=== PATIENT | male | born 1995 | race Caucasian/White ===

== ENCOUNTER 2019-03-31 23:03 | Inpatient (IN) | payer BC ==
[2019-03-31] MEDS ORDERED: NS 0.9% 1000 ML** 1,000 ML IV ONE (23:10)
[2019-03-31] MEDS ORDERED: Ondansetron INJ* 2 MG/ML VIAL IV ONE ×2 (23:15→23:21)
--- NOTE | 2019-03-31 23:16 | ED ---
Neurological HPI - HPI Summary HPI Summary: 23 year old male presents to the ED by EMS with a chief complaint of seizure activity starting at 2200. THIS IS A LEVEL 5 CAVEAT DUE TO AMS. Per EMS, patient flew into [place] to see his girlfriend at [place], arriving at 1700. He started feeling confused while eating pizza for dinner at 1800. At 2200 he had a 2 minute long grand mal seizure during which he lost consciousness and had severe full-body muscle spasms. His girlfriend called EMS, and he had another seizure while EMS was on its way to her home. En route to the hospital by EMS, he had a third seizure, this one 90 seconds long and accompanied by vomiting and diaphoresis. EMS gave 5 mg Versed. Pt has no history of seizure. - History of Current Complaint Stated Complaint: SEIZURE PER EMS Hx Obtained From: EMS Hx From Patient Unobtainable Due To: Altered Mental Status Onset/Duration: Sudden Onset, Started hours ago Onset Severity: Severe Current Severity: None Seizure Severity: Severe Number of Seizures: 3 - First one at 2200 Neurological Deficit Location: Generalized Character: Confusion, Responsiveness Syncope Timin, another one minutes after, followed by another one minutes after that Episode Lasting: Seconds/Minutes Number of Episodes: 3 Syncope Context: Witnessed, Loss of Consciousness: Yes Seizure Character: Generalized Aggravating: Unknown Alleviating: Unknown - Allergy/Home Medications Allergies/Adverse Reactions: Allergies Allergy/AdvReac Type Severity Reaction Status Date / Time No Known Allergies Allergy Verified 04/01/19 00:07 Home Medications: Home Medications NK [No Home Medications Reported] 04/01/19 [History Confirmed 04/01/19] PMH/Surg Hx/FS Hx/Imm Hx Previously Healthy: Yes Neurological History: Denies: Hx Seizures - Surgical History Surgical History: None - Family History Known Family History: Negative: Seizure Disorder - Social History Alcohol Use: None Hx Substance Use: No Substance Use Type: Reports: None Hx Tobacco Use: No Smoking Status (MU): Never Smoked Tobacco Review of Systems - ROS Summary Review of Systems Summary: Patient is not on any medications. Positive: Skin Diaphoresis Positive: Vomiting Neurological: Other - Seizure activity Positive: Syncope All Other Systems Reviewed And Are Negative: No Physical Exam - Summary Physical Exam Summary: THIS IS A LEVEL 5 CAVEAT PATIENT HAS AMS. General: Well-developed, Well-nourished male. No acute distress. Unresponsive to painful stimuli. HEENT: Normocephalic, Atraumatic. Eyes: Conjuctiva normal, Pupils 4mm, PERRL. Ears: TMs within normal limits. Nares: (-) discharge, (-) erythema. Oropharynx: Clear, mucous membranes moist, (-) exudates. Neck: Soft, FROM, (-) lymphadenopathy, (-) thyromegaly, (-) JVD. Cardiovascular: Normal sinus rhythm, (-) murmur. Lungs: Clear to auscultation bilaterally (-) wheezes, (-) rales, (-) rhonchi. Abdomen: Soft, non-tender, non-distended, (-) organomegaly, normal bowel sounds. Back: (-) CVA tenderness Extremities: No edema. Skin: Warm, dry, (-) rash. Neuro: Unable to assess. Psychiatric: Unable to assess. Triage Information Reviewed: Yes Vital Signs Reviewed: Yes Completion Of Physical Exam Limited Due To: Level 5 - Danny Coma Scale Best Eye Response: 3 - To Speech Best Motor Response: 5 - Purposeful Movement Best Verbal Response: 2 - Incomprehensible Words Coma Scale Total: 10 Procedures - Sedation Patient Received Moderate/Deep Sedation with Procedure: No Diagnostics - Laboratory Result Diagrams: 04/01/19 00:09 04/01/19 00:09 Lab Statement: Any lab studies that have been ordered have been reviewed, and results considered in the medical decision making process. - Radiology CXR Radiology Interpretation Completed By: ED Physician Summary of Radiographic Findings: Impression: No infiltrate. No pleural effusion. No pneumonia. Dr. Vitale reviewed and interpreted this CXR. - CT Brain CT CT Interpretation Completed By: Radiologist Summary of CT Findings: Brain CT reveals the following impressions: IMPRESSION : 1. There is a densely calcified mass lesion that appears to originate in the right frontal sinus that exophytically extends into the right anterior cranial fossa at the inferior and anterior aspect of the right frontal lobe. Overall this densely calcified mass lesion measures 4.5 x 4.8 x 3.7 cm. 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 2. There is cystic encephalomalacia in the anterior and inferior right frontal lobe likely due to the effects of the exophytic osteoma. 3. No other acute CT pathology. An ED physician has reviewed this report. - EKG 0019 Cardiac Rate: NL - 84 bpm EKG Rhythm: Sinus Rhythm ST Segment: Normal Summary of EKG Findings: EKG at 0019 reveals normal sinus rhythm with rate of 84 BPM, no acute changes, no ischemic changes. This EKG was reviewed and interpreted by Dr. Vitale. Re-Evaluation - Re-Evaluation First Eval Re-Evaluation Time: 00:01 Change: Improved Comment: Patient's condition has improved significantly. GCS now a 15. Patient is verbal and has asked for water. Second Eval Re-Evaluation Time: 01:04 Change: Unchanged Comment: Patient reports no family history of seizures. Course/Dx - Course Course Of Treatment: 23-year-old male presents after seizures tonight. Patient with no history of seizures. Apparently he is from [place]. Goes to school in [place] currently. Fluent for the weekend to see a friend imposed [place]. While having dinner tonight he suddenly went into a convulsive seizure. Ambulance was called. Patient had a second seizure in front of EMS. And then a third seizure en route. He had accompanying vomiting and diarrhea. Received Versed en route. Patient is lethargic upon arrival. After a period of time his GCS improves. Return to 15. He is loaded with Keppra per neurology consult. Admission recommended. Hospitalist requested neurosurgery consults. Patient was discussed with neurology irrigation laborer at [facility]. He strongly felt that this is an outpatient issue for neurosurgery. He advised controlling the seizures. Admitted for observation overnight. Return home and see an neurosurgeon in consult for further treatment. Discussed at length with patient and his family on speaker phone. Patient referred to the hospitalist for admission. - Diagnoses Provider Diagnoses: Seizure, Osteoma of skull - Physician Notifications Discussed Care Of Patient With: Masoud Quevedo - Hospitalist Time Discussed With Above Provider: 00:33 Instructed by Provider To: Admit As Inpatient - Spoke to Dr. Quevedo, Hospitalist , at 0033. He recommended transfer. Spoke to Dr. Steven, Neurosurgeon, who recommended admission and seizure medication. Admit/Transition Orders Completed By ED Provider: Yes Discharge ED - Sign-Out/Discharge Documenting (check all that apply): Patient Departure - admit - Discharge Plan Condition: Stable Disposition: ADMITTED TO [facility] Referrals: No Primary Care Phys,NOPCP [Primary Care Provider] - - Billing Disposition and Condition Condition: STABLE Disposition: Admitted to [facility] - Attestation Statements Document Initiated by Shellyibgena: Yes Documenting Scribe: Kenton Rossi Provider For Whom Elmo is Documenting (Include Credential): Ruthann Vitale MD. Scribe Attestation: Kenton Martines, scribed for Ruthann Vitale MD. on 04/01/19 at 0223. Scribe Documentation Reviewed: Yes Provider Attestation: The documentation as recorded by the scribeKenton accurately reflects the service I personally performed and the decisions made by me, Ruthann Vitale MD. Status of Scribe Document: Viewed
[2019-04-01 00:16] LABS: ABS Basophils 0.1 10^3/ul (0-0.2); ABS Eosinophils 0.1 10^3/ul (0-0.6); ABS Lymphocytes 0.4 10^3/ul (1.0-4.8); ABS Monocytes 0.3 10^3/ul (0-0.8); ABS Neutrophils 10.5 10^3/ul (1.5-7.7); Eosinophil % 0.5 %; Hematocrit 45 % (42-52); Hemoglobin 14.8 g/dL (14.0-18.0); Lymphocyte % 3.9 %; Mean Corpuscular HGB Conc 33 g/dL (31-36); Mean Corpuscular Hemoglobin 27 pg (27-31); Mean Corpuscular Volume 82 fL (80-94); Mean Platelet Volume 8.1 fL (7.4-10.4); Platelet Count 256 10^3/uL (150-450); Red Blood Count 5.52 10^6 /uL (4.18-5.48); Red Cell Distribution Width 13 % (10-15); White Blood Count 11.4 10^3/uL (3.5-10.8)
[2019-04-01 00:22] LABS: INR 1.13 (0.82-1.09)
[2019-04-01] MEDS ORDERED: levETIRAcetam 1000MG IVPREMIX* 1,000 MG/100 ML BAG IVPB ONE (00:28)
[2019-04-01 00:30] LABS: Albumin 5.1 g/dL (3.2-5.2); Anion Gap 10 mmol/L (2-11); CO2 Carbon Dioxide 24 mmol/L (22-32); Calcium 9.6 mg/dL (8.6-10.3); Chloride 104 mmol/L (101-111); Magnesium 2.2 mg/dL (1.9-2.7); Potassium 4.2 mmol/L (3.5-5.0); Sodium 138 mmol/L (135-145)
[2019-04-01] MEDS ORDERED: Ketorolac INJ* 30 MG/ML 1 ML VIAL IV PUSH ONE (00:30)
[2019-04-01 00:36] LABS: ALT 20 U/L (7-52); AST 25 U/L (13-39); Alkaline Phosphatase 72 U/L (34-104); BUN/Creatinine Ratio 13.5 (8-20); Blood Urea Nitrogen 14 mg/dL (6-24); EGFR African American 109.1 (>60); EGFR Non-African American 90.2 (>60); Globulin 2.5 g/dL (2-4); Glucose 103 mg/dL (70-100); Total Protein 7.6 g/dL (6.4-8.9)
[2019-04-01 01:00] LABS: Urine Appearance Clear; Urine Bacteria Absent (Absent); Urine Bilirubin Negative (Negative); Urine Blood Negative (Negative); Urine Color Yellow; Urine Glucose 1+(50 mg/dL) (Negative); Urine Ketones Negative (Negative); Urine Nitrite Negative (Negative); Urine Protein 1+(30 mg/dL) (Negative); Urine Red Blood Cell 1+(3-5/hpf) (Absent); Urine Specific Gravity 1.013 (1.010-1.030); Urine Urobilinogen Negative (Negative); Urine White Blood Cell Trace(0-5/hpf) (Absent)
[2019-04-01 01:14] LABS: Acetaminophen < 15 mcg/mL; Alcohol < 10 mg/dL (<10); Salicylate < 2.50 mg/dL (<30)
[2019-04-01 01:14] LABS: Urine Benzodiazepine Screen Presumptive Positive (None Detect); Urine Opiates Screen None Detected (None Detect)
[2019-04-01 01:28] LABS: TSH (Thyroid Stimulating Horm) 1.03 mcIU/mL (0.34-5.60)
[2019-04-01] MEDS ORDERED: Ondansetron INJ* 2 MG/ML VIAL IV PRN (04:39)
[2019-04-01] MEDS: NS 0.9% 1000 ML** 1,000 ML IV SCH ×2 (06:02→21:25)
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
[2019-04-01] MEDS ORDERED: levETIRAcetam 500 MG IVPREMIX* 500 MG/100 ML BAG IV SCH (09:00)
[2019-04-01] MEDS: levETIRAcetam TAB* 500 MG PO SCH ×2 (09:42→21:34)
--- NOTE | 2019-04-01 11:59 | CONS ---
CONSULTATION REPORT: DATE OF CONSULT: 04/01/19 PATIENT OF: Dr. Acosta. HISTORY OF PRESENT ILLNESS: This is a 23-year-old right-handed man who presents with new onset of seizures. He has been in good general health and is a student at [employer], visiting his girlfriend at [place] and he had a confusional episode last night at dinner and he went back to his girlfriend's dorm room and had 2 seizures that were major motor seizures with one lasting 90 seconds, one lasting 2 minutes. He received Versed and has had no seizures since last night. He has been loaded with Keppra. PAST MEDICAL HISTORY: He has been in good general health. PAST SURGICAL HISTORY: He is status post an appendectomy; bilateral arm surgeries for fracture; undescended testicles, status post removal. MEDICATIONS: He is on no medications prior to hospitalization. ALLERGIES: No known allergies. FAMILY HISTORY: Both parents are alive and well. SOCIAL HISTORY: He does not smoke, but uses marijuana on a daily basis. No alcohol abuse. No other drug use. REVIEW OF SYSTEMS: Negative in all 14 spheres. He has noted a bump on his right forehead, which has become more prominent recently. He has had no change in thinking and no headaches. PHYSICAL EXAM: Temperature 98.2, pulse 52, respirations 18, blood pressure 110/ 44. He is alert and oriented with normal speech and comprehension. Cranial nerves II through XII were intact. Fundi were benign. Motor exam revealed normal tone, strength, coordination, and gait. Normal fine motor skills in both hands. No pronator drift. Sensation intact to light touch. Reflexes were 2 and equal, downgoing toes. Neck was supple. Chest: Clear. Cardiovascular: Regular rate and rhythm. Abdomen is soft with positive bowel sounds. DIAGNOSTIC STUDIES/LAB DATA: Include white count of 11.4, normal CBC otherwise. INR of 1.13. Normal blood gas, pCO2 was 34. Normal CMP. Normal thyroid. UA was positive for 1+ protein. Urine was positive for cannabinoids and benzodiazepines, but this was after he received benzodiazepines for his seizure. His CT scan was reviewed and it did show a densely calcified lesion in the right frontal sinus that extends into the right anterior cranial fossa. There is also a cystic area of encephalomalacia with some protein content that the radiologist thought was due to an effect of an exophytic osteoma. IMPRESSION AND PLAN: Kirk has had new onset of 2 seizures yesterday without any preceding episodes of confusion other than last night and no altered sensations or unusual symptoms prior. I think that this is most likely secondary to his calcified right frontal lesion, which is thought to rise from bone. I think that this is a chronic finding that is presumably slowly progressive. Outside neurosurgeon was contacted last night and did not think the patient needed to be transferred. Films were not reviewed by neurosurgeon. I am having that done this morning and I discussed with the patient that I am not a neurosurgeon , but I think that it would be reasonable to have prompt neurosurgery attention to this, but that it is unlikely to be emergently requiring surgery. This weekend, there is no neurosurgeon on-call here. I am sending the films to [facility] and we will contact the neurosurgeon there and I will defer to them in terms of the acuity of a neurosurgical workup. The patient's family will be arriving in a few hours' time and from him talking to his parents, they are tentatively planning on bringing him back to [place] and they have neurosurgeon within their family and he may be evaluated by Neurosurgery there in the near future. I will just double check to make sure that this plan is reasonable with the neurosurgeon. I will be recommending that he go on slightly higher Keppra at least for a term up to 750 twice a day. Thank you for sharing his case. [id number]/[facility] #: [id number] RADHA
[2019-04-01] MEDS: Dexamethasone TAB* 1 MG PO SCH ×2 (12:01→21:26)
--- NOTE | 2019-04-01 15:27 | PN ---
Subjective Date of Service: 04/01/19 Interval History: HD 2 on 04/01 Patient does not have any complaint at present. Objective Active Medications: Dexamethasone (Decadron Tab*) 2 mg PO Q8HR [facility] Last Admin: 04/01/19 12:01 Dose: 2 mg Sodium Chloride (Ns 0.9% 1000 Ml) 1,000 mls @ 75 mls/hr IV PER RATE [facility] Last Admin: 04/01/19 06:02 Dose: 75 mls/hr Levetiracetam (Keppra Tab*) 750 mg PO BID [facility] Last Admin: 04/01/19 09:42 Dose: 750 mg Ondansetron HCl (Zofran Inj*) 4 mg IV Q4H PRN PRN Reason: NAUSEA/VOMITING Vital Signs - 8 hr 04/01/19 04/01/19 04/01/19 07:22 07:35 08:00 Temperature 99.1 F 98.2 F Pulse Rate 64 52 Respiratory 18 18 18 Rate Blood Pressure 109/46 110/44 (mmHg) O2 Sat by Pulse 98 97 Oximetry 04/01/19 11:16 Temperature 98.2 F Pulse Rate 53 Respiratory 17 Rate Blood Pressure 112/49 (mmHg) O2 Sat by Pulse 100 Oximetry Oxygen Devices in Use Now: None Exam: Patient is lying on abed with no acute distress. HEENT: Normocephalic and atraumatic Lungs: clear with no added sound Heart: S1/S2 heard with no added sound. Abdomen: Soft, nondistended and nontender. Normal BS heard Extremities: No swelling or cyanosis or clubbing Neuro; Alert, conscious and oriented. CN intact. Motor intact. sensation intact. No focal deficit noted Result Diagrams: 04/01/19 00:09 04/01/19 00:09 Assess/Plan/Problems-Billing Assessment: 23 y/o M otherwise healthy presented with new onset generalized seizure. Found to have exophytic mass originating in right frontal sinus and extending into right anterior cranial fossa at right frontal lobe. - Patient Problems (1) Generalized seizure Current Visit: Yes Status: Acute Code(s): R56.9 - UNSPECIFIED CONVULSIONS SNOMED Code(s): 758258784 Comment: -new onset generalized seizure- 2 episodes -associated with frothing and vomiting. -witnessed by girlfriend- no incontinence and tongue biting -patient doesnot remember the event -no family h/o seizure -CT brain- densely calcified mass originating in right frontal sinus extending to right frontal lobe. -MRI pending -Dr. sierra following; talked to neurosurgeon in [place] -on keppra 750 mg BID and dexamethasone 2 mg TID -he will have to follow up with neurosurgeon withn a week -no crackles on lungs- less possibility of aspiration (2) DVT prophylaxis Current Visit: Yes Status: Acute Code(s): Z29.9 - ENCOUNTER FOR PROPHYLACTIC MEASURES, UNSPECIFIED SNOMED Code(s): 605716579 Comment: -low risk -encourage ambulation (3) Full code status Current Visit: Yes Status: Acute Code(s): Z78.9 - OTHER SPECIFIED HEALTH STATUS SNOMED Code(s): 397574593 Status and Disposition: Inpatient Neuro following Attending: Irvin Acosta Attestation Documenting Resident: Christina Mackay Supervising Physician: Irvin Acosta Attending/Supervising Physician Comment: Agree with note as outlined here in Dr. Mackay's note unless indicated here. Discussed with neurology. NS in [facility] do not recommend surgery. Observe on keppra and steroids overnight for additional seizures. Will need to determine when follow up is needed. Attestation: This service has been performed in part by a resident under the direction of a teaching physician.I, Irvin Acosta, performed the service, or was physically present during the critical, or santoro portions of the service, furnished by the resident. I participated in the management of the patient.
[2019-04-01] MEDS ORDERED: Gadoteridol* (CONTRAST) 279.3 MG/ML 10 ML IV ONE (16:41)
[2019-04-01] MEDS ORDERED: Melatonin 3 MG TAB PO SCH (23:00)
[2019-04-02 05:44] LABS: ABS Lymphocytes 1.8 10^3/ul (1.0-4.8); ABS Monocytes 0.8 10^3/ul (0-0.8); ABS Neutrophils 8.8 10^3/ul (1.5-7.7); Eosinophil % 0.4 %; Hematocrit 46 % (42-52); Hemoglobin 15.3 g/dL (14.0-18.0); Lymphocyte % 15.9 %; Mean Corpuscular HGB Conc 33 g/dL (31-36); Mean Corpuscular Hemoglobin 27 pg (27-31); Mean Corpuscular Volume 82 fL (80-94); Mean Platelet Volume 8.7 fL (7.4-10.4); Nucleated Red Blood Cells % 0.2; Platelet Count 231 10^3/uL (150-450); Red Blood Count 5.64 10^6 /uL (4.18-5.48); Red Cell Distribution Width 14 % (10-15); White Blood Count 11.6 10^3/uL (3.5-10.8)
[2019-04-02] MEDS: Dexamethasone TAB* 1 MG PO SCH ×2 (06:15→13:37)
[2019-04-02 06:16] LABS: BUN/Creatinine Ratio 11.2 (8-20); Calcium 9.6 mg/dL (8.6-10.3); EGFR African American 130.6 (>60); EGFR Non-African American 107.9 (>60); Potassium 4.4 mmol/L (3.5-5.0)
[2019-04-02] MEDS: levETIRAcetam TAB* 500 MG PO SCH (09:12)
[2019-04-02 10:41] VITALS: BP 109/64
--- NOTE | 2019-04-02 15:22 | PN ---
PROGRESS NOTE: DATE OF VISIT: 04/02/19 HISTORY: This is a neurological followup on this 23-year-old right-handed man. He has had no seizures since Wednesday evening. No confusional episodes. He has had no headache and no numbness or weakness or any other complaints. He remains on his Keppra 750 twice a day. I began Decadron 2 mg t.i.d. after speaking to Dr. Capone at [place], who had reviewed his CAT scans and spoke to me in detail. He thought that he was at no risk from the tumor itself for a trip by car to home and then getting a prompt neurosurgical consult within the next week or so. He did think that since there are seizures just begun, he would recommend the Decadron. PHYSICAL EXAMINATION: On exam, temperature 97.9, pulse 84, respiratory rate 17 , blood pressure 109/64. He is alert and oriented with normal speech and comprehension. Cranial nerves II through XII were intact. Strength was intact in both sides. Chest: Clear. Cardiovascular: Regular rate and rhythm. LABORATORY DATA: White count 11.6 today. Normal BMP today. I reviewed his MRI scan in detail, which was done with and without contrast and shows a complex cystic lesion with a solid ossified mass in the right frontal lobe, which is extraaxial extending into the right frontal lobe and in the right sinus and ethmoid air cells. There is some vasogenic edema and there is minimal subfalcine shift to the left. This is consistent with an aggressive neoplasm. I spoke to Dr. Acosta earlier today at length and then now I have spoken to the family including both parents and Kirk about the tumor. I had recommended earlier that they contact their Oncology Neurosurgery friends to get a timely appointment. They actually have an appointment scheduled with Neurosurgery at [facility] tomorrow at 9:30. I discussed signs and symptoms of seizures and seizure first aid. He has been quiet for more than 36 hours at this point and it appears that the Keppra is holding him, we are giving him Rectal Diastat for the car ride home. If he has seizures at all, the recommendation is he discuss with family once they are home, if he has seizures to just either go to the nearest ER if it is a major motor seizure or if it is a complex partial seizure and it is over and done with, then depending on his exact clinical situation, they might be able to bring him in to [facility] Emergency Room. I gave them my cellphone number that they can call if they have questions, but if there is an acute situation, they will call [address] Capone thought that from a neurosurgical point of view, transfer to home by the family car and visit with neurosurgeon within a week was a reasonable game plan. [id number]/[facility] #: [id number] MTDD
--- NOTE | 2019-04-02 23:48 | DS ---
DISCHARGE SUMMARY: DATE OF ADMISSION: 04/01/19 DATE OF DISCHARGE: 04/02/19 PRIMARY CARE PROVIDER: None currently, from [place]. DISPOSITION ON DISCHARGE: Home, with followup with Neurosurgery at [facility] , tomorrow, at 9:30 a.m. CONDITION ON DISCHARGE: Stable. MEDICATIONS ON DISCHARGE: 1. Keppra 750 mg twice daily. 2. Dexamethasone 4 mg every 8 hours. 3. He was also prescribed Diastat per rectum 20 mg once if needed for seizure. PRIMARY DIAGNOSES: 1. 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 2. Seizures. 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 This is extraaxial. This extends into the right frontal sinus and ethmoid air cells. There is associated vasogenic edema. There is minimal subfalcine shift to the left. The appearance is suggestive of an aggressive neoplasm. The differential includes osteosarcoma. HISTORY OF PRESENT ILLNESS AND HOSPITAL COURSE: This is a 23-year-old man, with no significant past medical history, flew to [place] to visit his girlfriend at [place], after which he developed first episode of seizure, foaming at the mouth, and then 2 additional episodes of seizures en route with EMS after he received Versed from emergency personnel. In the emergency room, CT scan was notable for a frontal lobe mass as indicated above. He was admitted to the hospital, started on Keppra as well as dexamethasone for mild vasogenic edema. MRI with and without contrast further delineated the complex mass as outlined in the impression above. He had no additional seizures during the course of his hospital stay. His parents presented to the hospital from [place]. They were interested in returning back to [place] with care to be delivered at that institution. Prior to his admission to our hospital stay, conversation was held with neurosurgeon at [facility] as well as [facility], who did not recommend emergent transfer to Neurosurgery. In fact they both recommended observation overnight for seizures and then follow up outpatient with Neurosurgery. The patient will be discharged and he is going to drive home today with his parents. He will not be performing the driving. At [place] he has a followup tomorrow with Neurosurgery at [facility] after arranging through [facility] transfer center. The patient understands not to drive or perform other activities that will put him at an increased risk for injury should he have loss of consciousness. The patient's family also understands to proceed to closest emergency room should he have any additional seizures. TIME SPENT: Greater than 60 minutes were spent on discharge of this patient, greater than half was spent [id number] with the patient and his family. [id number]/[facility] #: [id number] RADHA
== END 2019-04-02 15:00 | disposition home or self-care (01) | DRG 53 ==
LOC: ED 23:03 → MEDTELE 04-01 04:39
PROVIDERS: ADMIT Internal Medicine; ATTEND Internal Medicine
DX: G40.409 Other generalized epilepsy and epileptic syndromes, not intractable, without status epilepticus (principal); G93.6 Cerebral edema; D43.0 Neoplasm of uncertain behavior of brain, supratentorial
CPT/HCPCS: 36415; 70450; 70553; 71045; 80048; 80053; 80307; 80320; 80329; 81003; 81015; 82803; 83605; 83735; 84443; 84484; 85025; 85610; 87040; 87086; 93005; 96365; 96375; 99285; A9270-GY; A9579; G0480; J1885; J1953; J2405